=== PATIENT | male | born 1990 | race African-American/Black ===

== ENCOUNTER 2017-10-27 01:23 | Emergency (ER) | payer SELFPAY ==
[~2017-10-27] VITALS: Ht 172.7 cm; Wt 113.0 kg
[2017-10-27] MEDS ORDERED: NALOXONE HCL 1 MG/ML 2ML VIAL SUBCUT ONE (01:45)
[2017-10-27 02:26] LABS: BASOPHILS % 1.2 % (0.0-2.0); EOSINOPHILS % 0.7 % (0.0-5.0); HEMATOCRIT. 39.8 % (42.0-52.0); HEMOGLOBIN. 13.4 g/dL (14.0-18.0); LYMPHOCYTES % 25.6 % (20.0-50.0); MEAN CORPUSCULAR HEMOGLOBIN 28.7 pg (28.0-32.0); MEAN CORPUSCULAR VOLUME 85.5 fL (80.0-94.0); MEAN PLATELET VOLUME 7.8 fl (7.4-10.4); NEUTROPHILS % 60.5 % (40.0-76.0); PLATELET 262 x1000/uL (130-400); RED BLOOD CELL COUNT 4.66 mill/uL (4.7-6.1); RED CELL DISTRIBUTION WIDTH 15.2 % (11.6-14.6)
[2017-10-27 02:35] LABS: CHLORIDE 107 mEq/L (98-107)
[2017-10-27 02:38] LABS: ETHANOL BLOOD < 10 mg/dL
[2017-10-27 06:01] VITALS: BP 163/105
== END 2017-10-27 06:15 | disposition home or self-care (01) ==
LOC: EDBD 01:23 → ER 01:23
DX: T40.0X1A Poisoning by opium, accidental (unintentional), initial encounter (principal); R41.82 Altered mental status, unspecified; R06.00 Dyspnea, unspecified; F11.188 Opioid abuse with other opioid-induced disorder; Y92.89 Other specified places as the place of occurrence of the external cause
CPT/HCPCS: 36415; 70450; 80053; 80307; 80329; 82962; 84443; 85025; 96372; 99285; G0482; Z7610